=== PATIENT | male | born 1955 | race Two or more races ===

== ENCOUNTER 2019-05-14 17:29 | Emergency (ER) | payer OTHER ==
[~2019-05-14] VITALS: Ht 157.5 cm; Wt 61.2 kg
--- OUTSIDE RECORDS SUMMARY | 2019-05-14 17:31 | XMS REPORT ---
Author Author [facility] Address Unknown Phone Unavailable Care Team Providers Care Screen Writer Name Role Phone DR YULIYA YING Unavailable Unavailable Problems This patient has no known problems. Allergies, Adverse Reactions, Alerts This patient has no known allergies or adverse reactions. Medications This patient has no known medications. Encounters Start Date/Time End Date/Time Encounter Type Admission Type Attending Clinicians Care Facility Care Department Encounter ID 2019-03-23 01:12:00 2019-03-24 13:48:00 Outpatient YULIYA VILLAFUERTE [facility] [place] TELE [id number] Results Test Description Test Time Test Comments Text Results Atomic Results Result Comments CARDIAC PROFILE 2019-03-24 06:05:00 TROPONIN I (test code=A84) <0.015 ng/mL 0.000-0.045 BASIC METABOLIC PANEL 2019-03-24 05:58:00* Test Item Value Reference Range Comments GLUCOSE (test code=06D) 102 mg/dL 75-100 SODIUM (test code=01A) 143 mmol/L 136-145 POTASSIUM (test code=01B) 3.8 mmol/L 3.6-5.1 CHLORIDE (test code=04A) 113 mmol/L 98-107 CO2 (test code=02A) 22 mmol/L 22-32 ANION GAP (test code=ANG) 11.8 mmol/L BUN (test code=05D) 18 mg/dL 7-18 CREATININE (test code=03E) 0.8 mg/dL 0.7-1.3 BUN/CREA (test code=BCR) 22 12-20 CALCIUM (test code=09D) 8.0 mg/dL 8.3-9.5 CARDIAC PROFILE 2019-03-24 00:27:00* Test Item Value Reference Range Comments TROPONIN I (test code=A84) <0.015 ng/mL 0.000-0.045 TROPONIN I 2019-03-23 15:24:00* Test Item Value Reference Range Comments TROPONIN I (test code=A84) 0.018 ng/mL 0.000-0.045 U/S CAROTID COLOR DOPPLER CHAYO*WW*2019-03-23 12:29:24Exam: Carotid Doppler ultrasoundHistory: SyncopeLocation: [id number]: High-resolution grayscale, color Doppler, and spectral analysis ofthe carotid and vertebral arteries was performed.Findings:There is minimal plaque within the carotid bulbs and proximal internal carotidarteries bilaterally but without evidence of high velocity stenosis. Velocitiesare within normal limits. Normal antegrade flow is seen in both vertebralarteries.The ICA to CCA ratio on the right was 0.61 and on the left was 0.91.Impression:Minimal plaque within the carotid bulbs and proximal internal carotid arterieswithout evidence of high velocity stenosis.MAGNESIUM WW2019-03-23 12:29:00* Test Item Value Reference Range Comments MAGNESIUM (test code=48A) 2.0 mg/dL 1.8-2.4 TROPONIN I *WW*2019-03-23 10:18:00* Test Item Value Reference Range Comments TROPONIN I (test code=A84) 0.036 ng/mL 0.000-0.045 CT PE PROTOCOL *WW*2019-03-23 08:26:01EXAMINATION: CT PE PROTOCOL *WW*.LOCATION: S17.HISTORY: Syncope, hypertension, coronary stents.COMPARISON: None.TECHNIQUE: CTA of the chest is performed after intravenous administration of 99cc of Omnipaque-350 using pulmonary embolism protocol. MIP images are obtained.One or more the following dose reduction techniques were used: Automatedexposure control, adjustment of mA and/or kV according to patient size, and useof iterative reconstruction technique.FINDINGS: Partially visualized thyroid gland appears unremarkable.VASCULATURE: There is normal enhancement of the main, lobar and segmentalpulmonary arteries. There are no filling defects to suggest a pulmonaryembolism.LYMPH NODES: No axillary, mediastinal or hilar bulky lymphadenopathy isidentified. Shotty bilateral axillary lymph nodes n oted.MEDIASTINUM: No mediastinal mass is noted. No aneurysmal dilatation ofthor acic aorta. Atherosclerotic coronary arterial and vascular calcifications.There is thinning involving left ventricular apex wall.PLEURA/PERICARDIUM: No pericard ial or pleural effusion is seen. LUNGS/AIRWAYS: The trachea and central bronchi are patent. No pneumothorax. No focal consolidation. Bibasilar dependent wilhelm es.OSSEOUS STRUCTURES: Visualized osseous structures demonstrates degenerativech anges.UPPER ABDOMEN: Visualized portion of the upper abdominal viscera demonstra tesfew punctate calcifications within the liver. Possible thickening involvinghe patic flexure of colon, partially imaged.IMPRESSION: No CTA evidence to suggest a pulmonary embolism.Thinning involving left ventricular apex wall, correlate wi th echocardiogram.Possible thickening involving hepatic flexure of colon, partia lly imaged,consider colonoscopy.CT HEAD W/O CONTRAST *WW*2019-03-23 08:14:23 EXAMINATION: CT HEAD W/O CONTRAST *WW*.LOCATION: S17.HISTORY: Syncope, hypertens ion.COMPARISON: None.TECHNIQUE: Routine CT of the head was performed without int ravenous contrast asper protocol. One or more the following dose reduction techn iques were used:Automated exposure control, adjustment of mA and/or kV according to patientsize, and use of iterative reconstruction technique.FINDINGS: Brain P arenchyma: No hemorrhage or infarction. No mass effect or midline shift.There ar e low attenuation regions within the periventricular white matter, thisis nonspe cific, most commonly associated with microvascular ischemic changes.Extra Axial Spaces: Unremarkable.Ventricular System: Unremarkable.Osseous Structures: Unre markable.Visualized Paranasal Sinuses: Unremarkable.IMPRESSION: No acute intrac ranial abnormality nor hemorrhage.PRO TIME AND PTT *WW*2019-03-23 05:15:00* Test Item Value Reference Range Comments PT (test code=TT) 12.9 s 9.8-13.6 INR (test code=INR) 1.1 INRH (test code=INRH) SUGGESTED THERAPEUTIC RANGE FOR INR: 2.5 - 3.5 For Patients with Prosthetic Valves or Patients with recurrent Thromboembolic Events 2.0 - 3.0 For Most Other Applications PTT (test code=PTT) 29.5 s 20.2-38.0 PTTH (test code=PTTH) To monitor the effectiveness of heparin, we offer the Anti-Xa (Heparin Assay). It can be used for either unfractionated or LMW Heparin. Order Code is ANTI-XA BASIC METABOLIC PANEL *WW*2019-03-23 04:43:00* Test Item Value Reference Range Comments GLUCOSE (test code=06D) 157 mg/dL 75-100 SODIUM (test code=01A) 142 mmol/L 136-145 POTASSIUM (test code=01B) 3.8 mmol/L 3.6-5.1 CHLORIDE (test code=04A) 107 mmol/L 98-107 CO2 (test code=02A) 23 mmol/L 22-32 ANION GAP (test code=ANG) 15.8 mmol/L BUN (test code=05D) 18 mg/dL 7-18 CREATININE (test code=03E) 1.0 mg/dL 0.7-1.3 BUN/CREA (test code=BCR) 17 12-20 CALCIUM (test code=09D) 8.4 mg/dL 8.3-9.5 CBC (INCLUDES AUTOMATED DIFFERENTIAL)*[id number] 04:29:00* Test Item Value Reference Range Comments WBC (test code=WBC) 12.4 10\S\3/uL 4.5-11.0 RBC (test code=RBC) 4.25 10\S\6/uL 4.20-5.60 HGB (test code=HBG) 13.0 g/dL 14.0-18.0 HCT (test code=HCT) 39.0 % 35.0-46.0 MCV (test code=MCV) 91.8 fL 80.0-94.0 MCH (test code=MCH) 30.6 pg 27.0-31.0 MCHC (test code=MCHC) 33.3 g/dL 32.0-36.0 RDW (test code=RDW) 12.9 % 11.5-14.5 PLT (test code=PLT) 240 10\S\3/uL 130-400 MPV (test code=MPV) 10.4 fL 9.4-12.4 NEUTROP # (test code=NE#) 10.4 10\S\3/uL 2.0-8.0 LYMPH # (test code=LY#) 1.2 10\S\3/uL 1.2-4.0 MONOCYTE # (test code=MO#) 0.5 10\S\3/uL 0.0-1.1 EOSINOPH # (test code=EO#) 0.2 10\S\3/uL 0.0-0.7 BASOPHIL # (test code=BA#) 0.0 10\S\3/uL 0.0-0.3 IG # (test code=IG#) 0.05 10\S\3/uL 0.00-0.06 NRBC # (test code=NRBC#) 0.00 10\S\3/uL 0.00-0.01 NEUTROPH % (test code=NE%) 83.3 % 35.0-73.0 LYMPH % (test code=LY%) 9.9 % 20.0-55.0 MONO % (test code=MO%) 4.3 % 2.5-10.0 EOSINOPH % (test code=EO%) 1.9 % 0.0-5.0 BASOPHIL % (test code=BA%) 0.2 % 0.0-2.0 IG % (test code=IG%) 0.4 % 0.0-0.8 NRBC% (test code=NRBC%) 0.0 % 0.0-0.2 MANDIFF (test code=WMDIFF) NO NO RBC MORPH (test code=WRBCMOR) NORMAL
--- NOTE | 2019-05-14 19:03 | Diagnostic Imaging Report ---
EXAMINATION: Head and cervical spine CT without contrast. HISTORY: Head trauma, head laceration, head and neck pain. . COMPARISON: None. TECHNIQUE: Multidetector axial images were obtained without contrast from the foramen magnum to the vertex and through the cervical spine. The images were reconstructed using brain and bone algorithms. Thin section brain images were reformatted into coronal and sagittal planes. Dose modulation, iterative reconstruction, and/or weight based adjustment of the mA/kV was utilized to reduce the radiation dose to as low as reasonably achievable. HEAD CT FINDINGS: Skull/scalp: No lytic or blastic lesions. No fractures. Mild forehead soft tissue swelling/laceration. Parenchyma: Normal. No mass, hemorrhage or CT evidence of acute vascular insult. Brain volume: Mild volume loss involving the bilateral medial temporal lobes. Ventricles: No hydrocephalus or displacement. Arteries: No density suggestive of thrombus. Dural sinuses: No abnormal density. Extra-axial spaces: No abnormal density. Foramen magnum: No mass, Chiari malformation, or basilar invagination. Sella: No obvious mass. Paranasal/mastoid sinuses: Imaged portions unremarkable. CERVICAL SPINE CT FINDINGS: Alignment:Normal alignment and lordosis. Soft tissues: Normal. Vertebrae: Normal height and density. No acute fracture, infection or neoplasm. 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 Degenerative changes: C1-C2: Normal C2-C3: Normal C3-C4: Normal C4-C5: Normal C5-C6: Disc osteophyte complex formation, bilateral uncovertebral and facet arthrosis. Mild spinal canal and moderate foraminal stenoses. C6-C7: Disc osteophyte complex formation, uncovertebral hypertrophic many of the right. Severe right and mild left foraminal stenoses. C7-T1: Normal IMPRESSION: Head CT: 1. No acute postraumatic intracranial hemorrhage. 2. Mild generalized brain volume loss. Cervical spine CT: 1. No acute fractures or dislocations. 2. Chronic degenerative changes as described. Note: Acute post traumatic spinal cord, vascular or ligamentous injury cannot adequately be assessed with CT. Signed by: Dr. Lupe Harris M.D. on 05/14/2019 7:00 PM
[2019-05-14 20:32] VITALS: BP 144/70
== END 2019-05-14 20:06 | disposition home or self-care (01) ==
LOC: ER 17:29
DX: S01.91XA Laceration without foreign body of unspecified part of head, initial encounter (principal); W22.8XXA Striking against or struck by other objects, initial encounter; Y92.008 Other place in unspecified non-institutional (private) residence as the place of occurrence of the external cause; I51.9 Heart disease, unspecified
CPT/HCPCS: 70450; 72125; 99283